=== PATIENT | female | born 1995 | race Two or more races ===

== ENCOUNTER 2021-09-15 09:00 | Inpatient (IN) | payer OTHER ==
[2021-09-15] MEDS: ELECTROLYTE-148 SOLN 1,000 ML IV SCH ×2 (09:30→14:30)
[2021-09-15 10:23] LABS: BASO % 0.3 % (0-2.0); EOS % 0.5 % (0-4.5); HEMATOCRIT 32.5 % (32.4-45.2); HEMOGLOBIN 11.2 GM/dL (10.7-15.3); LYMPH % 17.9 % (8-40); MCH 29.9 pg (25.7-33.7); MCHC 34.5 g/dl (32.0-36.0); MEAN CELL VOLUME 86.8 fl (80-96); MEAN PLT VOLUME 9.1 fl (7.5-11.1); MONO % 9.1 % (3.8-10.2); NEUT % 72.2 % (42.8-82.8); PLATELET COUNT 217 10^3/uL (134-434); RBC 3.74 M/mm3 (3.60-5.2); RDW 13.2 % (11.6-15.6); WHITE BLOOD COUNT 10.6 K/mm3 (4.0-10.0)
[2021-09-15] MEDS ORDERED: OXYTOCIN 30 UNITS in 0.9% NS 30 UNIT/500 ML INFUS.BAG IVPB SCH (10:30)
[2021-09-15] MEDS ORDERED: BUTORPHANOL TARTRATE 1 MG/ML VIAL IVPB ONE (10:30)
[2021-09-15] MEDS ORDERED: PROMETHAZINE HCL 25 MG/1 ML VIAL IVPUSH ONE (10:30)
[2021-09-15 10:33] LABS: INR 0.97 (0.83-1.09); PROTHROMBIN TIME (PATIENT) 11.2 SEC (9.7-13.0)
[2021-09-15 10:36] LABS: ACTIVATED PTT 27.6 SECONDS (25.2-36.5)
[2021-09-15 10:37] LABS: CALCIUM 9.4 mg/dL (8.5-10.1)
[2021-09-15 10:38] LABS: BLOOD UREA NITROGEN 10.9 mg/dL (7-18)
[2021-09-15 10:41] LABS: CREATININE 0.6 mg/dL (0.55-1.3)
[2021-09-15 11:29] LABS: SYPHILIS W/ RPR CONF NON-REACTIVE (NONREACTIVE)
[2021-09-15 11:35] VITALS: BMI 38.0
[2021-09-15 13:50] LABS: HIV INTERPRETATION NEGATIVE (NEGATIVE)
[2021-09-15] MEDS ORDERED: FENTANYL/BUPIVACAINE/NS/PF - PCEA - 50 ML DISP.SYRIN EP ONE ×2 (14:21→19:43)
[2021-09-15] MEDS ORDERED: NALOXONE HCL 0.4 MG/ML VIAL IVPUSH PRN (14:41)
[2021-09-15] MEDS ORDERED: BUPIVACAINE HCL/PF 0.25% (2.5MG/ML) 10 ML VIAL ONE (14:44)
[2021-09-15] MEDS: FENTANYL/BUPIVACAINE/NS/PF - PCEA - 50 ML DISP.SYRIN EP SCH ×2 (15:05→19:45)
[2021-09-15] MEDS ORDERED: CITRIC ACID/SODIUM CITRATE 30 ML UNIT-DOSE CUP PO ONE (21:34)
[2021-09-15] MEDS ORDERED: LIDOCAINE HCL/EPINEPHRINE/PF 20 ML VIAL ONE (22:12)
[2021-09-15] MEDS ORDERED: ceFAZolin SODIUM 1 GM VIAL ONE (22:24)
[2021-09-15] MEDS ORDERED: morphine SULFATE/PF 1 MG/2 ML (2cc Syringe - QUVA) ONE (22:24)
[2021-09-15] MEDS ORDERED: ONDANSETRON 4 MG/2 ML VIAL ONE (22:25)
[2021-09-15] MEDS ORDERED: ESMOLOL HCL 100,000 MCG/10 ML VIAL ONE (22:32)
[2021-09-15] MEDS ORDERED: OXYTOCIN 10 UNITS/ML VIAL ONE ×2 (22:35→22:38)
[2021-09-15] MEDS ORDERED: IBUPROFEN 600 MG TABLET (FP) PO PRN (23:22)
[2021-09-15] MEDS ORDERED: METHYLERGONOVINE MALEATE 0.2 MG/1 ML AMP IM PRN (23:22)
[2021-09-15] MEDS ORDERED: ACETAMINOPHEN 325 MG TABLET (FP) PO PRN (23:22)
[2021-09-15] MEDS ORDERED: IBUPROFEN 800 MG/8 ML IJ IVPB PRN (23:22)
[2021-09-15] MEDS ORDERED: ONDANSETRON 4 MG/2 ML VIAL IVPUSH PRN (23:41)
[2021-09-15] MEDS: OXYTOCIN 20 UNITS in 0.9% NS 20 UNIT/1,000 ML INFUS.BAG IV SCH (23:50)
[2021-09-16] MEDS ORDERED: DIPHTH,PERTUSS(ACELL),TET 0.5 ML DISP.SYRIN IM ONE (10:00)
[2021-09-16 10:14] LABS: BASO % 0.1 % (0-2.0); EOS % 0.1 % (0-4.5); HEMATOCRIT 27.8 % (32.4-45.2); HEMOGLOBIN 9.4 GM/dL (10.7-15.3); LYMPH % 7.4 % (8-40); MCH 29.2 pg (25.7-33.7); MCHC 33.6 g/dl (32.0-36.0); MEAN CELL VOLUME 86.7 fl (80-96); MEAN PLT VOLUME 9.4 fl (7.5-11.1); MONO % 7.6 % (3.8-10.2); NEUT % 84.8 % (42.8-82.8); PLATELET COUNT 181 10^3/uL (134-434); RBC 3.21 M/mm3 (3.60-5.2); RDW 13.3 % (11.6-15.6); WHITE BLOOD COUNT 14.4 K/mm3 (4.0-10.0)
[2021-09-16] MEDS: OXYTOCIN 20 UNITS in 0.9% NS 20 UNIT/1,000 ML INFUS.BAG IV SCH (10:18)
[2021-09-16] MEDS: FERROUS SO4 325 MG TABLET (FP) PO SCH ×2 (11:02→21:18)
[2021-09-16] MEDS: PRENATAL VITAMINS W/ FOLIC ACID TABLET (FP) PO SCH (11:03)
[2021-09-16] MEDS ORDERED: oxyCODONE HCL 5 MG TABLET PO PRN (11:22)
[2021-09-16] MEDS: SIMETHICONE 80 MG TAB.CHEW (FP) PO PRN (21:19)
[2021-09-16] MEDS: SENNOSIDES/DOCUSATE COMBO (SENNA PLUS) TABLET (UD) PO PRN (21:19)
[2021-09-16] MEDS ORDERED: BISACODYL 10 MG SUPP.RECT RC PRN (23:22)
[2021-09-17] MEDS: oxyCODONE HCL 5 MG TABLET PO PRN ×3 (09:10→23:03)
[2021-09-17] MEDS: SIMETHICONE 80 MG TAB.CHEW (FP) PO PRN ×3 (09:11→23:03)
[2021-09-17] MEDS: FERROUS SO4 325 MG TABLET (FP) PO SCH ×2 (09:49→22:00)
[2021-09-17] MEDS: PRENATAL VITAMINS W/ FOLIC ACID TABLET (FP) PO SCH (09:49)
[2021-09-17] MEDS: OXYTOCIN 20 UNITS in 0.9% NS 20 UNIT/1,000 ML INFUS.BAG IV SCH (19:25)
[2021-09-17] MEDS: FENTANYL/BUPIVACAINE/NS/PF - PCEA - 50 ML DISP.SYRIN EP SCH ×2 (19:26→19:29)
[2021-09-17] MEDS: SENNOSIDES/DOCUSATE COMBO (SENNA PLUS) TABLET (UD) PO PRN (23:03)
[2021-09-18] MEDS: SIMETHICONE 80 MG TAB.CHEW (FP) PO PRN (04:20)
[2021-09-18] MEDS: oxyCODONE HCL 5 MG TABLET PO PRN ×2 (04:20→09:02)
[2021-09-18] MEDS: FERROUS SO4 325 MG TABLET (FP) PO SCH (09:02)
[2021-09-18] MEDS: PRENATAL VITAMINS W/ FOLIC ACID TABLET (FP) PO SCH (09:03)
[2021-09-18 09:36] VITALS: BP 128/85; PULSE 85; RESP 16; TEMP 98.2
== END 2021-09-18 12:30 | disposition home or self-care (01) | DRG 788 ==
LOC: JLDR 09:00 → J3W 09-16 00:50
PROVIDERS: ADMIT Obstetrics & Gynecology; ATTEND Obstetrics & Gynecology
PROC: 10D00Z1 Extraction of Products of Conception, Low, Open Approach (ICD-10-PCS; principal; 2021-09-15)
PROC: 10907ZC Drainage of Amniotic Fluid, Therapeutic from Products of Conception, Via Natural or Artificial Opening (ICD-10-PCS; 2021-09-15)
DX: O76 Abnormality in fetal heart rate and rhythm complicating labor and delivery (principal); O77.0 Labor and delivery complicated by meconium in amniotic fluid; O64.0XX0 Obstructed labor due to incomplete rotation of fetal head, not applicable or unspecified; O62.8 Other abnormalities of forces of labor; O48.0 Post-term pregnancy; Z3A.41 41 weeks gestation of pregnancy; Z37.0 Single live birth
CPT/HCPCS: 36415; 80048; 85025; 85610; 85730; 86780; 86850; 86900; 86901; 87389; 88307-TC; 90715; C9803-CS; U0003; U0005